=== PATIENT | male | born 1995 | race Caucasian/White ===

== ENCOUNTER 2018-06-01 10:35 | Emergency (ER) | payer OTHER ==
[~2018-06-01] VITALS: Ht 162.6 cm; Wt 91.0 kg
[2018-06-01] MEDS ORDERED: OXYCODONE HCL/ACETAMINOPHEN 5/325MG TABLET PO ONE (11:15)
[2018-06-01 12:20] LABS: BASOPHILS % 0.3 % (0.0-2.0); EOSINOPHILS % 1.1 % (0.0-5.0); HEMOGLOBIN. 14.9 g/dL (14.0-18.0); LYMPHOCYTES % 12.7 % (20.0-50.0); MEAN CORPUSCULAR VOLUME 90.6 fL (80.0-94.0); MONOCYTES % 5.1 % (2.0-8.0); NEUTROPHILS % 80.8 % (40.0-76.0); PLATELET 332 x1000/uL (130-400); RED BLOOD CELL COUNT 4.97 mill/uL (4.7-6.1)
[2018-06-01 12:25] LABS: CHLORIDE 102 mEq/L (98-107)
[2018-06-01 12:31] LABS: ETHANOL BLOOD < 10 mg/dL
[2018-06-01 13:41] VITALS: BP 121/79
[2018-06-01] MEDS ORDERED: SODIUM BICARBONATE 4% (2.4MEQ) 5ML VIAL IV ONE (14:51)
[2018-06-01] MEDS ORDERED: LIDOCAINE HCL 1% 20ML VIAL (Pyxis) INJ ONE (14:51)
== END 2018-06-01 16:30 | disposition home or self-care (01) ==
LOC: ER 10:35
DX: G40.909 Epilepsy, unspecified, not intractable, without status epilepticus (principal); S00.03XA Contusion of scalp, initial encounter; R94.5 Abnormal results of liver function studies; R03.0 Elevated blood-pressure reading, without diagnosis of hypertension; W01.198A Fall on same level from slipping, tripping and stumbling with subsequent striking against other object, initial encounter; Y93.89 Activity, other specified; Y92.89 Other specified places as the place of occurrence of the external cause
CPT/HCPCS: 36415; 99284; J3490

== ENCOUNTER 2023-05-12 12:22 | Emergency (ER) | payer MEDICAID, OTHER ==
[~2023-05-12] VITALS: Ht 177.8 cm; Wt 91.0 kg
[2023-05-12 12:35] VITALS: O2SAT 98
[2023-05-12] MEDS ORDERED: GUAI-741 MT (13:35)
[2023-05-12] MEDS ORDERED: CETI1TAB MT (13:35)
[2023-05-12 14:58] VITALS: BP 128/87; PULSE 72; RESP 19; TEMP 98.5
== END 2023-05-12 14:59 | disposition home or self-care (01) ==
LOC: ER 12:24
DX: R05.1 Acute cough (principal)
CPT/HCPCS: 99282

== ENCOUNTER 2024-03-15 11:32 | Emergency (ER) | payer MEDICAID, OTHER ==
[~2024-03-15] VITALS: Ht 172.7 cm; Wt 77.0 kg
[~2024-03-15 11:32] MED LIST: CETI1TAB MT; GUAI-741 MT
[2024-03-15 11:33] VITALS: O2SAT 97
[2024-03-15 11:50] VITALS: BP 121/67; PULSE 90; RESP 18; TEMP 98.5; O2SAT 100
[2024-03-15] MEDS: KETOROLAC 30MG/ML VIAL IM ONE (13:00)
[2024-03-15] MEDS ORDERED: IBUP-2029 MT (13:03)
[2024-03-15] MEDS ORDERED: AMOX-494 MT (13:03)
== END 2024-03-15 13:02 | disposition home or self-care (01) ==
LOC: ER 11:32
DX: J02.9 Acute pharyngitis, unspecified (principal); J45.909 Unspecified asthma, uncomplicated
CPT/HCPCS: 99283; 87430; 87070; 96372; J1885